=== PATIENT | male | born 1965 | race Caucasian/White ===

== ENCOUNTER 2024-06-16 11:20 | Emergency (ER) | payer OTHER ==
[2024-06-16 11:51] VITALS: BP 101/62; PULSE 106; RESP 16; TEMP 98; BMI 35.9
[2024-06-16] MEDS ORDERED: IBUPROFEN 600 MG TABLET (FP) PO ONE (12:49)
[2024-06-16] MEDS ORDERED: ACETAMINOPHEN 500 MG TABLET (FP) ONE (12:50)
[2024-06-16] MEDS: IBUPROFEN 600 MG TABLET (FP) PO ONE (13:15)
[2024-06-16] MEDS: ACETAMINOPHEN 500 MG TABLET (FP) PO ONE (13:15)
== END 2024-06-16 16:06 | disposition home or self-care (01) ==
LOC: JERFT 11:20
DX: S42.202A Unspecified fracture of upper end of left humerus, initial encounter for closed fracture (principal); W01.0XXA Fall on same level from slipping, tripping and stumbling without subsequent striking against object, initial encounter
CPT/HCPCS: 73030-TC-LT-FY; 73060-TC-LT-FY; 73070-TC-LT-FY; 99284-25